=== PATIENT | male | born 1995 | race Caucasian/White ===

== ENCOUNTER → 2017-05-14 | Outpatient (CLI) | payer OTHER ==
--- NOTE | 2017-05-14 13:01 | RADIOLOGY REPORT (SQ) ---
EXAM DESCRIPTION: U/S LTD DUPLEX ART/ASTRID FLOW; U/S RETROPERITON (RENAL/AORTA) COMPLETED DATE/TIME: 05/14/2017 11:50 am REASON FOR STUDY: HTN/PITA I70.1 ATHEROSCLEROSIS OF RENAL ARTERY COMPARISON: None. TECHNIQUE: Realtime and static grayscale images acquired. Selected color Doppler, velocities and spe ctral images recorded. LIMITATIONS: Renal artery origins directly off the aorta were difficult to visualize. FINDINGS: RIGHT KIDNEY: RENAL ARTERY VELOCITIES: At the hilum, 88 cm/sec. Segmental artery velocity 63 cm/sec. RENAL VEIN: Color doppler flow present, patent. VELOCITY RATIO: 1.0. Normal waveforms. KIDNEY: Right kidney is 9 cm in length with normal cortical thickness and echogenicity. No signifi cant pathology. LEFT KIDNEY: RENAL ARTERY VELOCITIES: At the hilum, 73 cm/sec. Segmental artery velocity 56 cm/sec. RENAL VEIN: Color doppler flow present, patent. VELOCITY RATIO: 0.85. Normal waveforms. KIDNEY: Left kidney is 10.1 cm in length with normal cortical thickness and echogenicity. No signi ficant pathology. BLADDER: Normal. OTHER: Decompressed, not well seen IMPRESSION: NO DOPPLER EVIDENCE OF HEMODYNAMICALLY SIGNIFICANT RENAL ARTERY STENOSIS. COMMENT: NORMAL RENAL ARTERY/AORTA VELOCITY RATIO IS LESS THAN OR EQUAL TO 3.5. TECHNICAL DOCUMENTATION: JOB ID: [id number] [employer]- All Rights Reserved Reading location - IP/workstation name: [email or web address]
--- NOTE | 2017-05-14 13:01 | RADIOLOGY REPORT (SQ) ---
EXAM DESCRIPTION: U/S LTD DUPLEX ART/ASTRID FLOW; U/S RETROPERITON (RENAL/AORTA) COMPLETED DATE/TIME: 05/14/2017 11:50 am REASON FOR STUDY: HTN/PITA I70.1 ATHEROSCLEROSIS OF RENAL ARTERY COMPARISON: None. TECHNIQUE: Realtime and static grayscale images acquired. Selected color Doppler, velocities and spe ctral images recorded. LIMITATIONS: Renal artery origins directly off the aorta were difficult to visualize. FINDINGS: RIGHT KIDNEY: RENAL ARTERY VELOCITIES: At the hilum, 88 cm/sec. Segmental artery velocity 63 cm/sec. RENAL VEIN: Color doppler flow present, patent. VELOCITY RATIO: 1.0. Normal waveforms. KIDNEY: Right kidney is 9 cm in length with normal cortical thickness and echogenicity. No signifi cant pathology. LEFT KIDNEY: RENAL ARTERY VELOCITIES: At the hilum, 73 cm/sec. Segmental artery velocity 56 cm/sec. RENAL VEIN: Color doppler flow present, patent. VELOCITY RATIO: 0.85. Normal waveforms. KIDNEY: Left kidney is 10.1 cm in length with normal cortical thickness and echogenicity. No signi ficant pathology. BLADDER: Normal. OTHER: Decompressed, not well seen IMPRESSION: NO DOPPLER EVIDENCE OF HEMODYNAMICALLY SIGNIFICANT RENAL ARTERY STENOSIS. COMMENT: NORMAL RENAL ARTERY/AORTA VELOCITY RATIO IS LESS THAN OR EQUAL TO 3.5. TECHNICAL DOCUMENTATION: JOB ID: [id number] [employer]- All Rights Reserved Reading location - IP/workstation name: [email or web address]
== END ==
LOC: RAD 10:33
PROVIDERS: ATTEND Internal Medicine Cardiovascular Disease
DX: I70.1 Atherosclerosis of renal artery (principal)
CPT/HCPCS: 76770; 93976